=== PATIENT | female | born 1990 | race Caucasian/White ===

== ENCOUNTER 2019-04-06 19:35 | Emergency (ER) | payer OTHER, SELFPAY ==
--- NOTE | ~2019-04-06 | XR_ITS ---
EXAMINATION: XR chest 2V DATE: 04/06/2019 20:27 INDICATION: Chest heaviness and palpitations TECHNIQUE: PA and lateral views of the chest are obtained. COMPARISON: None available FINDINGS: The lungs are free of acute opacities. There is no pleural effusion or pneumothorax. The ca rdiomediastinal silhouette is normal. The visualized bones and soft tissues are unremarkable. IMPRESSION: 1. No acute cardiopulmonary abnormality. Reviewed, dictated and finalized at location A. CULTURE TEACHER
[2019-04-06 19:37] VITALS: BP 147/85; PULSE 93; RESP 18; TEMP 36.9; O2SAT 100
--- NOTE | 2019-04-06 19:48 | ECG_ITS ---
Measurements Intervals [place] Rate: 78 P: 45 MD: 120 QRS: 15 QRSD: 104 T: 35 QT: 378 QTc: 432 Interpretive Statements SINUS RHYTHM WITH SINUS ARRHYTHMIA INCOMPLETE RIGHT BUNDLE BRANCH BLOCK BORDERLINE ECG Electronically Signed On 04-07-2019 8:19:31 [employer] by Lebron Ash D.O.
[2019-04-06 19:49] VITALS: PULSE 78
--- NOTE | 2019-04-06 19:52 | ED.ARRPALP ---
HPI - Arrhythmia/Palpitations General Chief Complaint: Arrhythmia/Palpitations Stated Complaint: heart racing Time Seen by Provider: 04/06/19 19:41 Source: patient and RN notes reviewed Mode of arrival: ambulatory Limitations: no limitations History of Present Illness HPI narrative: A 28 y/o female presents to the ED with intermittent, worsening, heart palpitations for the past week. She states that she first noticed last weekend but that roughly 45 minutes ago it became more severe. She reports that it feels like her heart is pounding and skipping beats. She notes associated rhinorrhea, nausea, and chest discomfort. She also notes that the palpitations typically start while she is at rest. She denies anything aggravating or alleviating her symptoms. She also denies any sharp CP, leg edema, vomiting, diarrhea, sweats, cough, sore throat, body aches, fevers, chills, or ABD pain. complaint: skipped beats and palpitations Onset (ago): week(s) (1) Duration: intermittent (worsening) Context: occurred during rest Associated symptoms: nausea and other (rhinorrhea and chest discomfort) Related Data Home Medications Medication Instructions Recorded Confirmed No Home Medications 04/06/19 04/06/19 Allergies Allergy/AdvReac Type Severity Reaction Status Date / Time No Known Allergies Allergy Unverified 04/06/19 19:36 Review of Systems Review of Systems: All systems reviewed & are unremarkable except as noted in HPI and below Constitutional: Constitutional: Denies body ache(s), Denies chills, Denies fever(s) and Denies other (sweats) ENT: Reports nasal discharge and Denies sore throat Cardiovascular: Cardiovascular: Denies chest pain (sharp), Denies leg edema, Reports palpitations and Reports other (chest discomfort) Respiratory: Respiratory: Denies cough Gastrointestinal: Gastrointestinal: Denies abdominal pain, Denies diarrhea, Reports nausea and Denies vomiting PMFSH Past Medical History Medical History (Updated 04/06/19 @ 22:19 by Humberto Berg MD) Finger fracture No pertinent past medical history Surgical History Surgical History (Updated 04/06/19 @ 22:14 by Humberto Berg MD) No pertinent past surgical history Surgical history unknown Family History Family History (Updated 04/06/19 @ 22:14 by Humberto Berg MD) Father Hypertension Grandparent Family history of arthritis Family history of Alzheimer's disease Mother SVT (supraventricular tachycardia) Social History Social History Smoking status: Never smoker Alcohol intake: current Gender identity (if verbalized by the patient): Female Exam Narrative: Exam Narrative: GENERAL: Well-appearing, well-nourished, and in no acute distress. HEAD: Normocephalic, atraumatic. ENT: Mucous membranes moist. CHEST: Clear to auscultation. No respiratory distress. HEART: Tachycardic and regular. No murmur heard. Normal peripheral pulses. ABDOMEN: Soft, nontender, nondistended. EXTREMITIES: Normal range of motion. No edema. NEURO: Alert and oriented x3. Course Course Emergency Course: Patient informed of results. Will add on TSH. She will arrange outpatient follow-up with PCP. May require outpatient holter. Vital Signs Vital signs: Vital Signs Temperature 98.4 F 04/06/19 19:37 Pulse Rate 93 04/06/19 19:37 Respiratory Rate 18 04/06/19 19:37 Blood Pressure 147/85 H 04/06/19 19:37 Pulse Oximetry 100 04/06/19 19:37 Temperature 98.4 F 04/06/19 19:37 Pulse Rate 78 04/06/19 19:49 Respiratory Rate 18 04/06/19 19:37 Blood Pressure 147/85 H 04/06/19 19:37 Pulse Oximetry 100 04/06/19 19:37 MDM - Arrhythmia/Palpitations Lab Data Result diagrams: 04/06/19 20:04 04/06/19 20:04 Labs: Lab Results 04/06/19 04/06/19 04/06/19 Range/Units 20:04 20:04 20:04 WBC 6.3 (4.5-10.0) K/mm3 RBC 4.68 (4.2-5.4) M/mm3 Hgb
[2019-04-06 20:09] LABS: Basophils Absolute Auto 0.1 K/mm3 (0.0-0.1); Basophils Percent Auto 1.1 % (0.2-1.2); Eosinophils Absolute Auto 0.1 K/mm3 (0-0.3); Hematocrit 39.6 % (37.0-47.0); Hemoglobin 12.8 g/dL (12.0-15.0); Immature Granulocyte Absolute 0.01 K/mm3 (0.00-0.031); Immature Granulocyte Percent A 0.2 % (0-0.5); Lymphocytes Absolute Auto 3.51 K/mm3 (0.9-3.2); Lymphocytes Percent Auto 55.6 % (18.3-44.2); Mean Corpuscular HGB Conc 32.3 g/dl (32-36); Mean Corpuscular Hemoglobin 27.4 pg (26-34); Mean Corpuscular Volume 84.6 fl (80-100); Mean Platelet Volume 10.2 fl (7.4-10.4); Monocytes Absolute Auto 0.5 K/mm3 (0.1-0.6); Monocytes Percent Auto 7.1 % (2.6-8.5); Neutrophils Absolute Auto 2.2 K/mm3 (1.3-6.7); Platelet Count Result 344 k/mm3 (150-375); Red Blood Count 4.68 M/mm3 (4.2-5.4); Red Cell Distribution Width 15.5 % (11.5-14.5); White Blood Count 6.3 K/mm3 (4.5-10.0)
[2019-04-06 20:19] LABS: INR 1.2; Prothrombin Time 14.5 Seconds (11.1-14.7)
[2019-04-06 20:20] LABS: Partial Thromboplastin Time 32.2 SECONDS (22.3-36.8)
[2019-04-06 20:21] LABS: Blood Urea Nitrogen 12 mg/dL (7-17); Calcium 9.4 mg/dL (8.4-10.2); Carbon Dioxide 28 mmol/L (22-30); Chloride 102 mmol/L (98-107); Estimated Glomerular Filt Rate > 60; Glucose 102 mg/dL (65-105); Potassium 3.4 mmol/L (3.4-5.0); Sodium 140 mmol/L (137-145)
--- NOTE | 2019-04-06 20:24 | PC.NURSE ---
called to add on bnp
[2019-04-06 20:33] LABS: Troponin I < 0.012 ng/mL (0.000-0.034)
[2019-04-06] MEDS: SODIUM CHLORIDE 0.9% IV 1,000 ML 999 ML IV CONT (21:55)
[2019-04-06] MEDS: ASPIRIN 81 MG CHEWABLE TABLET 324 MG PO (21:55)
[2019-04-06 22:39] VITALS: BP 116/74; PULSE 75; RESP 14; O2SAT 97
[2019-04-06 23:04] LABS: Free T4 Free Thyroxine Reflex 0.85 ng/dL (0.78-2.19)
[2019-04-06 23:43] LABS: Total Triiodothyronine (T3) 1.51 NG/ML (0.97-1.69)
== END 2019-04-06 22:41 | disposition home or self-care (01) ==
PROVIDERS: Emergency Provider Emergency Medicine
DX: R00.2 Palpitations (principal); I45.10 Unspecified right bundle-branch block
CPT/HCPCS: 36415; 71046; 80048; 81025; 83735; 84439; 84443; 84480; 84484; 85025; 85610; 85730; 93005; 96360; 99284; A9270; J7030

== ENCOUNTER 2020-01-16 17:27 | Outpatient (CLI) | payer OTHER, SELFPAY | END 2020-01-16 17:28 | disposition home or self-care (01) | LOC: ANHLAB 17:29 | PROVIDERS: Visit Provider Surgery Plastic and Reconstructive Surgery | DX: Z20.828 Contact with and (suspected) exposure to other viral communicable diseases (principal) | CPT/HCPCS: 36415; 86769 ==

== ENCOUNTER 2020-03-11 16:06 | Inpatient (IN) | payer OTHER, SELFPAY ==
[2020-03-11] VITALS (80 sets, daily range): BP systolic 90–125; BP diastolic 49–89; PULSE 69–110; TEMP 36.8–37; O2SAT 96–100; BMI 27.3
[2020-03-11 17:06] LABS: Basophils Absolute Auto 0.1 K/mm3 (0.0-0.1); Basophils Percent Auto 0.6 % (0.2-1.2); Eosinophils Percent Auto 0.3 % (0-4.4); Hematocrit 37.1 % (37.0-47.0); Hemoglobin 12.5 g/dL (12.0-15.0); Immature Granulocyte Absolute 0.07 K/mm3 (0.00-0.031); Immature Granulocyte Percent A 0.6 % (0-0.5); Lymphocytes Absolute Auto 2.27 K/mm3 (0.9-3.2); Lymphocytes Percent Auto 19.8 % (18.3-44.2); Mean Corpuscular HGB Conc 33.7 g/dl (32-36); Mean Corpuscular Hemoglobin 30.6 pg (26-34); Mean Corpuscular Volume 90.7 fl (80-100); Mean Platelet Volume 11.4 fl (7.4-10.4); Monocytes Absolute Auto 0.7 K/mm3 (0.1-0.6); Monocytes Percent Auto 6.5 % (2.6-8.5); Neutrophils Absolute Auto 8.3 K/mm3 (1.3-6.7); Neutrophils Percent Auto 72.2 % (45.5-73.1); Platelet Count Result 239 k/mm3 (150-375); Red Blood Count 4.09 M/mm3 (4.2-5.4); White Blood Count 11.5 K/mm3 (4.5-10.0)
--- NOTE | 2020-03-11 17:07 | LDADM ---
This patient, Lois Alba, was admitted to Labor/Delivery/Recovery 108 on 03/11/20 at 16:06. Plans for labor, pain management and were discussed with patient. Patient/family oriented to hospital policies and general routines including ID bracelet, bed and alarms, visiting hours, pain management, procedures, bathroom and other care routines, personal items, smoking policy, room service/diet and guest tray routines, infant security routines, and visiting hours. Patient/Family are encouraged to report perceived risks to care and to ask questions if they do not understand what they are told or what they should do. See OBIX for further documentation.
[2020-03-11] MEDS: DINOPROSTONE 10 MG VAG INSERT VAGINAL (17:23)
--- NOTE | 2020-03-11 18:00 | WPDOBADMIT ---
Obstetrics - Admit Note Admission Note: record reviewed. Additions to the history and/or subsequent changes in the physical findings follow. 29 y/o G1 at 40 1/7 weeks here for induction of labor. GBS negative. uncomplicated. AVSS NST reactive TOCO: contractions irregularly ABD soft, nontender, gravid, vertex EXT nontender Cervix 50/-2 per RN. A: IUP at term, desiring induction of labor. P: Cervidil. Reviewed risks, benefits, alternatives. Anticipate .
[2020-03-11] MEDS: LACTATED RINGERS 1,000 ML 125 ML IV CONT ×3 (20:01→21:36)
--- NOTE | 2020-03-11 20:50 | WPDANESEPP ---
Anes - Eval Pre Procedure Procedure: Labor epidural Date/Time: 03/11/20 20:50 Surgeon: Mariola Preop Diagnosis: pain during labor Pre Op Diagnosis: PRE ADMIT Patient Data Age: 29 Gender: F Height: 1.57 m Weight: 68 kg Last Vital Signs Temp 36.8 C 03/11/20 19:16 Pulse 99 03/11/20 20:45 BP 114/79 03/11/20 20:45 Allergies Allergy/AdvReac Type Severity Reaction Status Date / Time No Known Allergies Allergy Verified 02/08/20 13:41 Home Medications Medication Instructions Recorded Confirmed Type prenat.vits,jasbir,hri-nque-cddsc 1 tablet PO DAILY 02/08/20 02/08/20 History [ #2] Laboratory Tests 03/11/20 03/11/20 03/11/20 16:58 16:58 16:58 WBC 11.5 K/mm3 H K/mm3 (4.5-10.0) RBC 4.09 M/mm3 L M/mm3 (4.2-5.4) Hgb 12.5 g/dL g/dL (12.0-15.0) Hct 37.1 % % (37.0-47.0) MCV 90.7 fl fl (80-100) MCH 30.6 pg pg (26-34) MCHC 33.7 g/dl g/dl (32-36) RDW 14.0 % % (11.5-14.5) Plt Count 239 k/mm3 k/mm3 (150-375) MPV 11.4 fl H fl (7.4-10.4) Immature Gran % (Auto) 0.6 % H % (0-0.5) Neut % (Auto) 72.2 % % (45.5-73.1) Lymph % (Auto) 19.8 % % (18.3-44.2) [place] % (Auto) 6.5 % % (2.6-8.5) Eos % (Auto) 0.3 % % (0-4.4) Baso % (Auto) 0.6 % % (0.2-1.2) Lymph # (Auto) 2.27 K/mm3 K/mm3 (0.9-3.2) [place] # (Auto) 0.7 K/mm3 H K/mm3 (0.1-0.6) Eos # (Auto) 0.0 K/mm3 K/mm3 (0-0.3) Baso # (Auto) 0.1 K/mm3 K/mm3 (0.0-0.1) Abs Immat Gran (auto) 0.07 K/mm3 H K/mm3 (0.00-0.031) Absolute Neuts (auto) 8.3 K/mm3 H K/mm3 (1.3-6.7) Absolute Nucleated RBC 0.0 K/mm3 K/mm3 (0.0-0.012) Nucleated RBC % 0.0 % % (0.0-0.2) RPR Pending Blood Type A Positive Antibody Screen Negative Patient hx anesthesia problems: pseudocholinesterase deficiency Family hx anesthesia problems: none PMFSH Past Medical History Medical History (Updated 01/16/20 @ 17:27 by Kulwinder Alba MD) Finger fracture No pertinent past medical history Surgical History Surgical History (Updated 04/06/19 @ 22:14 by Humberto Berg MD) No pertinent past surgical history Surgical history unknown Family History Family History Father Hypertension Grandparent Family history of arthritis Family history of Alzheimer's disease Mother SVT (supraventricular tachycardia) Social History Social History Smoking status: Never smoker Alcohol intake: current Substance use: never Gender identity (if verbalized by the patient): Female Spiritual care concerns: No Exam Day of Procedure 03/11/20 20:50
[2020-03-11] MEDS: OXYTOCIN 30 UNITS/NS 500 ML 30 UNITS/500 ML BAG 6 UNITS IV CONT (21:55)
[2020-03-12] VITALS (96 sets, daily range): BP systolic 94–125; BP diastolic 56–82; PULSE 67–167; RESP 16–18; TEMP 36.7–37.3; O2SAT 96–100
[2020-03-12] MEDS: OXYTOCIN 30 UNITS/NS 500 ML 30 UNITS/500 ML BAG 125 UNITS IV CONT (05:32)
--- NOTE | 2020-03-12 05:32 | PM.OBPRVD ---
OB - Delivery Note Procedure Delivery date: 03/12/20 Procedure: Induction of labor with Induction method: per pitocin protocol and per cervidil protocol Delivery augmentation: pitocin Delivery monitor: external FHT and external uterine Route of delivery: Laceration Description: Perineal - 2nd Degree and Labial Delivery repair: vicryl (3-0 and 4-0) Specimen: Yes (cord blood) Quantitative Blood Loss (ml): 320 Anesthesia type: Epidural Disposition: PACU Complications: None Narrative: 29 y/o G1 at 40 2/7 weeks gestation who presented to the hospital for induction of labor. Cervidil was placed. She had SROM and the Cervidil was withdrawn. She received an epidural for pain control. Oxytocin was administered intravenously. Her labor progressed and her cervix dilated completely. She pushed with good effort and delivered the 's head to the perineum, followed by the body. The nose and mouth were bulb suctioned. After a delay, the cord was clamped and cut. The infant was handed off the field. Cord blood was collected. The placenta delivered spontaneously and was grossly normal in appearance. The usual 3 vessel cord was noted. Bilateral vaginal sulcal lacerations were noted, as was a second degree midline perineal laceration. These were reapproximated using 3 0 Vicryl in the usual layered fashion. A shallow, left labial laceration was reapproximated using two interrupted sutures of 4-0 Vicryl. Excellent hemostasis resulted as did excellent reapproximation of the normal anatomy. Needle and instrument counts were correct. The patient was taken to recovery room in stable condition. The infant went to the nursery in stable condition. I was present and scrubbed for the entire delivery. [place] Baby Date of : 03/12/20 Time of : 04:56 Weeks of gestation at delivery: 40 gender: Male Weight (pounds): 7 presentation: vertex position: Right Occiput Anterior Placenta delivery description: Spontaneous and Normal Configuration cord vessel description: 3 Vessels and Delayed Cord Clamping score one minute: 9 score five minutes: 9
--- NOTE | 2020-03-12 05:35 | P.DS_ITS ---
DS: Admitting Diagnosis Admitting Diagnosis Admitting Diagnosis: IUP at 40 2/7 weeks DS: Discharge Diagnosis Discharge Diagnosis (1) (normal spontaneous vaginal delivery): Code(s): O80 - Encounter for full-term uncomplicated delivery Status: Acute OB - DS: Summary OB Procedures : None OB Procedures Intrapartum: Spontaneous Vag Delivery OB Procedures: : None DS: Data Data Completed and Pending Labs on day of discharge: Labs from last 24 hours 03/11/20 03/11/20 03/11/20 16:58 16:58 16:58 WBC 11.5 H RBC 4.09 L Hgb 12.5 Hct 37.1 MCV 90.7 MCH 30.6 MCHC 33.7 RDW 14.0 Plt Count 239 MPV 11.4 H Immature Gran % (Auto) 0.6 H Neut % (Auto) 72.2 Lymph % (Auto) 19.8 [place] % (Auto) 6.5 Eos % (Auto) 0.3 Baso % (Auto) 0.6 Lymph # (Auto) 2.27 [place] # (Auto) 0.7 H Eos # (Auto) 0.0 Baso # (Auto) 0.1 Abs Immat Gran (auto) 0.07 H Absolute Neuts (auto) 8.3 H Absolute Nucleated RBC 0.0 Nucleated RBC % 0.0 RPR Pending Blood Type A Positive Antibody Screen Negative Discharge Plan Discharge Attending physician on discharge: Steven Garnett Discharging Clinician: Steven Garnett Patient Disposition: Home, Self-Care Activity: pelvic rest Diet: regular Discharge Instructions: Call or return if temperature above 100.4? F, increased abdominal pain, increased vaginal bleeding or any new problems. Stand Alone Forms: General Discharge Information Follow-up/Referrals: Steven Garnett MD [Physician] - 6 Weeks Discharge Medications: New ibuprofen 600 mg tablet 600 mg PO Q6H PRN (Reason: cramps) Qty: 30 RF: 0 ferrous sulfate 325 mg (65 mg iron) tablet 325 mg PO DAILY Qty: 30 RF: 0 No Action #2 Tablet 1 tablet PO DAILY RF: 0 Date of admission: 03/11/20 16:06 Primary Care Provider: PHYSICIAN,PATIENT SCHEDULING MANAGER Admitting Provider: Steven Garnett Attending physician on admission: Steven Garnett Condition: Stable
[2020-03-12] MEDS: IBUPROFEN 600 MG TABLET PO ×3 (06:30→21:01)
[2020-03-12] MEDS: BENZOCAINE 20% AER SPR (*SP) 56 GM CAN 1 SPRAY TOPICAL (06:30)
[2020-03-12] MEDS: WITCH HAZEL 40 PADS 1 PAD TOPICAL (06:30)
--- NOTE | 2020-03-12 08:25 | PC.NURSE ---
Patient transferred to post room #288 per wheelchair from labor and delivery. Support person present. Oriented to unit, room, information board, rooming in, admission packet and security measures. Patient verbalizes understanding.
[2020-03-12 11:06] LABS: Rapid Plasma Reagin Non-Reactive (NonReactive)
[2020-03-13 05:11] LABS: Hematocrit 27.9 % (37.0-47.0); Hemoglobin 9.4 g/dL (12.0-15.0)
[2020-03-13 07:50] VITALS: BP 110/70; PULSE 89; RESP 16; TEMP 36.6; O2SAT 100
--- NOTE | 2020-03-13 08:36 | PM.OBPNVD ---
OB - PN: Subj Subjective Date/time seen: 03/13/20 08:36 Narrative: Pain OK. Would like to go home. OB - PN: Obj Data Labs CBC & Chem 7: 03/13/20 04:51 Labs: Laboratory Results - last 24 hr 03/11/20 03/13/20 16:58 04:51 Hgb 9.4 L D Hct 27.9 L RPR Non-reactive OB - PN A/P Plan Comments: A: PPD#1, doing well. P: Home to f/u 6 weeks. Exam Psych: Other: AVSS ABD soft, nontender, fundus firm EXT nontender
[2020-03-13] MEDS: MULTIVIT/MIN/PREN/FOL AC/IRON TABLET 1 TAB PO (09:17)
[2020-03-13] MEDS: IBUPROFEN 600 MG TABLET PO (09:18)
[2020-03-13] MEDS: POLYSACCHARIDE IRON COMPLEX 150 MG CAPSULE PO (09:18)
--- NOTE | 2020-03-13 10:40 | WPDANESPN ---
Anes - Prog Note Post-Op Date/Time: 03/13/20 10:40 Cardiovascular status: normal Respiratory status: normal Airway patency: baseline Mental status: baseline Post-Op hydration status: normal Vital Signs: Last Vital Signs Temp 97.9 F 03/13/20 07:50 Pulse 89 03/13/20 07:50 Resp 16 03/13/20 07:50 BP 110/70 03/13/20 07:50 Pulse Ox 100 03/13/20 07:50 Pain Score (VAS): 0/10 I/O: Intake & Output 03/12/20 03/13/20 03/13/20 23:59 07:59 15:59 Intake Total 360 Balance 360 Laboratory Tests 03/13/20 04:51 03/11/20 03/13/20 16:58 04:51 Hgb 9.4 L D Hct 27.9 L RPR Non-reactive Post-procedural complaints: none Patient Feedback: Patient satisfied with anesthetic care.
--- NOTE | 2020-03-13 10:57 | WPDANLDPN2 ---
Anes-Prog Note L&D Date/Time: 03/13/20 10:57 Comfortable throughout: labor and delivery Neuraxial method: epidural Neuro status: Neuro function grossly intact. Cardiovascular status: normal Respiratory status: normal Airway patency: baseline Mental status: baseline Post-Op hydration status: normal Vital Signs: Last Vital Signs Temp 97.9 F 03/13/20 07:50 Pulse 89 03/13/20 07:50 Resp 16 03/13/20 07:50 BP 110/70 03/13/20 07:50 Pulse Ox 100 03/13/20 07:50 Pain score (VAS): 0/10 I/O: Intake & Output 03/12/20 03/13/20 03/13/20 23:59 07:59 15:59 Intake Total 360 Balance 360 Post-procedural complaints: none Patient feedback: Patient satisfied with anesthetic care.
--- NOTE | 2020-03-13 12:16 | PC.NURSE ---
Patient viewed the discharge video Mother & Baby Care, The First Two Weeks . Patient was given the opportunity and encouraged to ask questions. Patient verbalized understanding of information shared and has been given the mother/baby guide for home reference.
--- NOTE | 2020-03-13 12:36 | PC.NURSE ---
Consulted with patient, reviewed feeding cues, frequencies, duration of feedings, feeding elimination flow sheet, and signs of adequate intake. Demonstrated stimulation techniques to wake for feeding. to breast independently by mom with use of nipple shield. Reviewed positioning/alignment, holding breast and asymmetrical latch on. was able to latch correctly. Infant nursed eagerly, with steady draws and occasional swallowing noted. Reviewed signs of a correct latch, effective nursing and suck swallow ratio. Infant was able to maintain latch without discomfort to mother. Nipple care reviewed. Instructed mother to call out for RN assistance if she is unable to latch for feeding or she has discomfort with nursing. Instructed feeding should be initiated three hours from start of last feeding or if feeding cues are noted before. Mother voiced understanding of information shared.
--- NOTE | 2020-03-13 12:38 | PC.NURSE ---
Mother verbalizes she is able to independently latch with appropriate positioning/alignment. She denies any nipple discomfort, is feeding as required and waking to feed if needed. Infant has had 5 effective breastfeedings in the past 24 hours along with some formula supplementation, and is currently meeting outcomes for weight, output, jaundice and feeding frequencies. Mother states she feels confident to continue effective at home. Reviewed transition to breast milk, signs of adequate intake, and engorgement/relief. Instructed to call ICP if intake/output less than required. Reviewed community resources on the [facility] website and in the Mom/Baby guide. Information on outpatient services provided. Mother has no further questions at this time.
[2020-03-14 11:16] VITALS: BP 105/81; PULSE 80; RESP 20; TEMP 36.6; O2SAT 100
== END 2020-03-13 14:45 | disposition home or self-care (01) | DRG 807 ==
LOC: ANHLDR 03-12 05:37 → ANHOB2 03-12 08:33
PROVIDERS: Admitting Provider Obstetrics & Gynecology; Visit Provider Obstetrics & Gynecology
DX: O69.81X0 Labor and delivery complicated by cord around neck, without compression, not applicable or unspecified (principal); Z37.0 Single live birth; Z3A.40 40 weeks gestation of pregnancy; O70.1 Second degree perineal laceration during delivery; O36.8330 Maternal care for abnormalities of the fetal heart rate or rhythm, third trimester, not applicable or unspecified
CPT/HCPCS: 36415; 84112; 85014; 85018; 85025; 86592; 86850; 86900; 86901; A9270; J2590; J2795; J7120

== ENCOUNTER → 2021-02-03 11:33 | Outpatient (REF) | payer OTHER, SELFPAY | LOC: ANHLAB 11:33 | PROVIDERS: Visit Provider Nurse Practitioner | DX: D22.5 Melanocytic nevi of trunk (principal) | CPT/HCPCS: 88305 ==

== ENCOUNTER → 2022-06-07 17:07 | Outpatient (CLI) | payer OTHER, SELFPAY ==
--- NOTE | ~2022-06-07 | XR_ITS ---
EXAMINATION: XR chest 2V 06/07/2022 17:30 INDICATION: Cough PROCEDURE: 2 view chest COMPARISON: 04/06/2019 FINDINGS: The lungs are clear. The cardiomediastinal silhouette is within normal limits. There are no pleural effusions. There is no pneumothorax suspected. IMPRESSION: 1: NO ACUTE CARDIOPULMONARY DISEASE. Reviewed, dictated and finalized at location A.
== END ==
PROVIDERS: PCP Internal Medicine; Visit Provider Internal Medicine
DX: R05.9 Cough, unspecified (principal)
CPT/HCPCS: 71046

== ENCOUNTER 2022-09-30 15:22 | Outpatient (CLI) | payer OTHER, SELFPAY ==
[2022-09-30 19:51] LABS: Strep Group A RT-PCR NOT DETECTED (Negative)
== END 2022-09-30 15:23 | disposition home or self-care (01) ==
LOC: ANHLAB 15:24
PROVIDERS: PCP Internal Medicine; Visit Provider Internal Medicine
DX: J02.9 Acute pharyngitis, unspecified (principal)
CPT/HCPCS: 87651

== ENCOUNTER 2023-05-18 06:08 | Inpatient (IN) | payer OTHER, SELFPAY ==
[2023-05-18] VITALS (138 sets, daily range): BP systolic 89–135; BP diastolic 51–98; PULSE 73–151; RESP 16; TEMP 36.1–36.9; O2SAT 81–100; BMI 25.6
[2023-05-18 07:02] LABS: Basophils Absolute Auto 0.1 K/mm3 (0.0-0.1); Basophils Percent Auto 0.5 % (0.2-1.2); Eosinophils Percent Auto 0.4 % (0-4.4); Hematocrit 35.9 % (37.0-47.0); Hemoglobin 12.2 g/dL (12.0-15.0); Immature Granulocyte Absolute 0.06 K/mm3 (0.00-0.031); Immature Granulocyte Percent A 0.7 % (0-0.5); Lymphocytes Absolute Auto 1.56 K/mm3 (0.9-3.2); Mean Corpuscular Hemoglobin 30.7 pg (26-34); Mean Corpuscular Volume 90.2 fl (80-100); Mean Platelet Volume 10.3 fl (7.4-10.4); Monocytes Absolute Auto 0.6 K/mm3 (0.1-0.6); Monocytes Percent Auto 6.5 % (2.6-8.5); Neutrophils Absolute Auto 6.9 K/mm3 (1.3-6.7); Neutrophils Percent Auto 74.9 % (45.5-73.1); Platelet Count Result 239 k/mm3 (150-375); Red Blood Count 3.98 M/mm3 (4.2-5.4); White Blood Count 9.2 K/mm3 (4.5-10.0)
--- NOTE | 2023-05-18 07:12 | LDADM ---
This patient, Lois Alba, was admitted to Labor/Delivery/Recovery 102 on 05/18/23 at 06:08. Plans for labor, pain management and were discussed with patient. Patient/family oriented to hospital policies and general routines including ID bracelet, bed and alarms, visiting hours, pain management, procedures, bathroom and other care routines, personal items, smoking policy, room service/diet and guest tray routines, infant security routines, and visiting hours. Patient/Family are encouraged to report perceived risks to care and to ask questions if they do not understand what they are told or what they should do. See OBIX for further documentation.
[2023-05-18] MEDS: LACTATED RINGERS 1,000 ML 125 ML IV CONT ×3 (07:45→15:45)
[2023-05-18] MEDS: OXYTOCIN 30 UNITS/NS 500 ML 30 UNITS/500 ML BAG IV CONT ×2 (07:50→15:46)
--- NOTE | 2023-05-18 08:42 | WPDOBADMIT ---
Obstetrics - Admit Note Admission Note: record reviewed. Additions to the history and/or subsequent changes in the physical findings follow. 32 y/o at 39 1/7 weeks here for scheduled induction of labor. GBS neg. AVSS NST reactive TOCO: contractions every 2-4 min ABD soft, nontender, gravid, vertex EXT nontender Cervix 2-3/50/-2. Vertex. AROM with clear fluid. A: IUP at term with favorable cervix, desiring induction of labor. P: Oxytocin. Anticipate .
--- NOTE | 2023-05-18 10:44 | WPDANESEPP ---
Anes - Eval Pre Procedure Procedure: Labor Epidural Date/Time: 05/18/23 10:44 Surgeon: Mariola Preop Diagnosis: Labor Pain Pre Op Diagnosis: IOL Patient Data Age: 32 Gender: F Height: 1.57 m Weight: 63.5 kg Last Vital Signs Temp 36.9 C 05/18/23 06:30 Pulse 90 05/18/23 10:40 BP 114/67 05/18/23 10:40 Pulse Ox 100 05/18/23 10:43 O2 Del Method Room Air 05/18/23 07:12 Allergies Allergy/AdvReac Type Severity Reaction Status Date / Time No Known Allergies Allergy Verified 05/18/23 07:27 Home Medications Medication Instructions Recorded Confirmed Type cetirizine 10 mg tablet (Zyrtec) 10 mg PO DAILY PRN sinus pressure 07/01/21 05/18/23 History lansoprazole 15 mg capsule,delayed 15 mg PO DAILY 07/01/21 05/18/23 History release ferrous sulfate 325 mg (65 mg 325 mg PO DAILY 04/28/23 04/28/23 History iron) tablet prenat.vits,jasbir,ott-ehyt-jkdyb 1 tablet PO DAILY 04/28/23 05/18/23 History Laboratory Tests 05/18/23 06:52 WBC 9.2 K/mm3 (4.5-10.0) RBC 3.98 L M/mm3 (4.2-5.4) Hgb 12.2 g/dL (12.0-15.0) Hct 35.9 L % (37.0-47.0) MCV 90.2 fl (80-100) MCH 30.7 pg (26-34) MCHC 34.0 g/dl (32-36) RDW 15.0 H % (11.5-14.5) Plt Count 239 k/mm3 (150-375) MPV 10.3 fl (7.4-10.4) Immature Gran % (Auto) 0.7 H % (0-0.5) Neut % (Auto) 74.9 H % (45.5-73.1) Lymph % (Auto) 17.0 L % (18.3-44.2) [place] % (Auto) 6.5 % (2.6-8.5) Eos % (Auto) 0.4 % (0-4.4) Baso % (Auto) 0.5 % (0.2-1.2) Lymph # (Auto) 1.56 K/mm3 (0.9-3.2) [place] # (Auto) 0.6 K/mm3 (0.1-0.6) Eos # (Auto) 0.0 K/mm3 (0-0.3) Baso # (Auto) 0.1 K/mm3 (0.0-0.1) Abs Immat Gran (auto) 0.06 H K/mm3 (0.00-0.031) Absolute Neuts (auto) 6.9 H K/mm3 (1.3-6.7) Absolute Nucleated RBC 0.000 K/mm3 (0.0-0.012) Nucleated RBC % 0.0 % (0.0-0.2) RPR Pending Blood Type A Positive Antibody Screen Negative : gestational age ([place] 05/24/23, ) Patient hx anesthesia problems: none Family hx anesthesia problems: none Results Review: All pre-operative results and documents have been reviewed as part of the pre-operative evaluation. [facility] Past Medical History Medical History BMI 20.0-20.9, adult Encounter to establish care Finger fracture Frequent headaches GERD (gastroesophageal reflux disease) Incomplete RBBB No pertinent past medical history On edger machine helper drug therapy Pseudocholinesterase deficiency Surgical History Surgical History No pertinent past surgical history Family History Family History Father Hypertension Malignant neoplasm of prostate Grandparent Family history of arthritis Family history of Alzheimer's disease Mother SVT (supraventricular tachycardia) Social History Social History Smoking status: Never smoker Second hand tobacco smoke exposure: No Alcohol intake: current Substance use: never Do You Feel Safe in your Home?: Yes Lack of Transportation: No Lack of Food: Never True Current Housing: I Have Housing Concerned About Future Housing: No Difficulty Paying Gas/Electric Bills: No Difficulty Paying for Meds: No Currently Unemployed: No Education: Bachelor's Degree Difficulty w/ Childcare or Family Care: No Living arrangements: with family Occupation/Education: occupation Gender identity (if verbalized by the patient): Female Spiritual care concerns: No Exam Day of Procedure 05/18/23 10:44 Patient weight: normal Heart: regular rate and rhythm Lungs: normal air movement Airway: Mallampati scale class II Neurological: alert and oriented
--- NOTE | 2023-05-18 12:21 | PM.OBPNLAB ---
Pain Control Date/time seen: 05/18/23 12:21 Comments: Comfortable with epidural Pelvic Exam Dilation (cm): 4 Effacement (%): 80 station: -1 Contractions Contraction frequency: 3 Contraction pattern: Regular Status status: Category l Assessment and Plan Pitocin rate (mU/min): 6 Comments: Continue labor
[2023-05-18 14:27] LABS: Rapid Plasma Reagin Non-Reactive (NonReactive)
--- NOTE | 2023-05-18 15:32 | P.PCNOB_ITS ---
OB - Vaginal Delivery Note Procedure Delivery date: 05/18/23 Induction method: Per Pitocin Protocol Delivery augmentation: Rupture of Membranes Delivery monitor: External FHT, External Uterine and Internal Uterine Route of delivery: Laceration Description: Perineal - 2nd Degree Delivery repair: vicryl (3-0) Specimen: Yes (cord blood) Quantitative Blood Loss (ml): 320 Anesthesia type: Epidural Disposition: PACU Complications: None Narrative: 32 y/o at 39 1/7 weeks gestation who presented to the hospital for induction of labor. Oxytocin was administered intravenously. Amniotomy was performed with return of clear fluid. She received an epidural for pain control. Her labor progressed and her cervix dilated completely. She pushed with good effort and delivered the infant's head to the perineum, followed by the body. The nose and mouth were bulb suctioned. After a delay, the cord was clamped and cut. The infant was handed off the field. Cord blood was collected. The placenta delivered spontaneously and was grossly normal in appearance. The usual 3 vessel cord was noted. A second degree midline perineal laceration was sustained. This was reapproximated using 3 0 Vicryl in the usual layered fashion. Excellent hemostasis resulted as did excellent reapproximation of the normal anatomy. Needle and instrument counts were correct. The patient was taken to recovery room in stable condition. The infant went to the nursery in stable condition. I was present and scrubbed for the entire delivery. [place] Baby Date of : 05/18/23 Time of : 15:12 Weeks of gestation at delivery: 39 Infant gender: Female presentation: vertex position: Left Occiput Anterior Placenta delivery description: Spontaneous and Normal Configuration Cord Vessel Description: 3 Vessels and Delayed Cord Clamping score one minute: 8 score five minutes: 9
--- NOTE | 2023-05-18 15:33 | PM.OBDSVD ---
DS: Admitting Diagnosis Discharge Date 05/19/23 Admitting Diagnosis IUP at 39 1/7 weeks DS: Discharge Diagnosis Discharge Diagnosis (1) (normal spontaneous vaginal delivery): Code(s): O80 - Encounter for full-term uncomplicated delivery Status: Acute OB - DS: Summary OB Procedures : None OB Procedures Intrapartum: Spontaneous Vag Delivery OB Procedures: : None Peripartum Data Laceration Description: Perineal - 2nd Degree Time Spent with Patient Time attestation: Total time spent providing and/or coordinating discharge services: DS: Data Data Completed and Pending Labs on day of discharge: Labs from last 24 hours 05/18/23 06:52 WBC 9.2 RBC 3.98 L Hgb 12.2 Hct 35.9 L MCV 90.2 MCH 30.7 MCHC 34.0 RDW 15.0 H Plt Count 239 MPV 10.3 Immature Gran % (Auto) 0.7 H Neut % (Auto) 74.9 H Lymph % (Auto) 17.0 L [place] % (Auto) 6.5 Eos % (Auto) 0.4 Baso % (Auto) 0.5 Lymph # (Auto) 1.56 [place] # (Auto) 0.6 Eos # (Auto) 0.0 Baso # (Auto) 0.1 Abs Immat Gran (auto) 0.06 H Absolute Neuts (auto) 6.9 H Absolute Nucleated RBC 0.000 Nucleated RBC % 0.0 RPR Non-reactive Blood Type A Positive Antibody Screen Negative Discharge Plan Discharge Attending physician on discharge: Steven Garnett Discharging Clinician: Steven Garnett Patient Disposition: Home, Self-Care Activity: pelvic rest Diet: regular Discharge Instructions: Call or return if temperature above 100.4? F, increased abdominal pain, increased vaginal bleeding or any new problems. Stand Alone Forms: General Discharge Information Follow-up/Referrals: Steven Garnett MD [Physician] - 6 Weeks Discharge Medications: Continued cetirizine [Zyrtec] 10 mg tablet 10 mg PO DAILY PRN (Reason: sinus pressure) lansoprazole 15 mg capsule,delayed release(DR/EC) 15 mg PO DAILY ferrous sulfate 325 mg (65 mg iron) Tablet 325 mg PO DAILY #2 Tablet 1 tablet PO DAILY Date of admission: 05/18/23 06:08 Primary Care Provider: Michael Rios Admitting Provider: Steven Garnett Attending physician on admission: Steven Garnett Condition: Stable
[2023-05-18] MEDS: OXYTOCIN 30 UNITS/NS 500 ML 30 UNITS/500 ML BAG 125 UNITS IV CONT (15:46)
[2023-05-18] MEDS: IBUPROFEN 600 MG TABLET PO ×2 (17:13→23:30)
[2023-05-18] MEDS: WITCH HAZEL 40 PADS 1 PAD TOPICAL (17:13)
[2023-05-18] MEDS: BENZOCAINE 20% AER SPR (*SP) 56 GM CAN 1 SPRAY TOPICAL (17:13)
--- NOTE | 2023-05-18 17:14 | PC.NURSE ---
1700 Introductions were made, then consulted with patient to assess needs related to . Discussed with mother her?plans to feed?her infant, the?experience so far, and mother states this baby latched well without pain. Encouraged understanding of the benefits of skin to skin (demonstrating unwrapping infant and placing upright on her chest), stimulating with massage touch, changing positions to encourage wakefulness, how to watch for early feeding cues, responsive feeding, and feeding on demand. Mother voiced understanding of information and will call if there is a request for assistance. Reported to the Primary RN.
[2023-05-18] MEDS: ACETAMINOPHEN 325 MG TABLET 650 MG PO (19:35)
[2023-05-19] MEDS: ACETAMINOPHEN 325 MG TABLET 650 MG PO ×2 (04:10→10:11)
[2023-05-19 04:15] VITALS: BP 90/62; PULSE 86; RESP 16; TEMP 36.6; O2SAT 99
[2023-05-19 05:11] LABS: Hematocrit 27.2 % (37.0-47.0); Hemoglobin 9.2 g/dL (12.0-15.0)
--- NOTE | 2023-05-19 07:57 | WPDANLDPN2 ---
Anes-Prog Note L&D Date/Time: 05/19/23 07:57 Comfortable throughout: labor and delivery Neuraxial method: epidural Epidural/Spinal procedure site: clean & non-tender Neuro status: Neuro function grossly intact. Cardiovascular status: normal Respiratory status: normal Airway patency: baseline Mental status: baseline Post-Op hydration status: normal Vital Signs: Last Vital Signs Temp 36.6 C 05/19/23 04:15 Pulse 86 05/19/23 04:15 Resp 16 05/19/23 04:15 BP 90/62 L 05/19/23 04:15 Pulse Ox 99 05/19/23 04:15 O2 Del Method Room Air 05/18/23 20:15 Pain score (VAS): 2/10 I/O: Intake & Output 05/18/23 05/18/23 05/19/23 15:59 23:59 07:59 Intake Total 2500 Output Total 400 25 Balance 2100 -25 Post-procedural complaints: none Patient feedback: Patient satisfied with anesthetic care.
[2023-05-19 08:45] VITALS: BP 96/68; PULSE 82; RESP 18; TEMP 36.9; O2SAT 100
--- NOTE | 2023-05-19 09:16 | PM.OBPNVD ---
OB - PN: Subj Subjective Date/time seen: 05/19/23 09:16 Narrative: Pain OK. Would like to go home. OB - PN: Obj Data Labs 05/19/23 04:12 Labs: Laboratory Results - last 24 hr 05/18/23 05/19/23 06:52 04:12 Hgb 9.2 L D Hct 27.2 L RPR Non-reactive OB - PN A/P Plan Comments: A: PPD#1, doing well. P: Home to f/u 6 weeks. Exam Psych: Other: AVSS ABD soft, nontender, fundus firm EXT nontender
[2023-05-19] MEDS: DOCUSATE SODIUM 100 MG CAPSULE PO (10:12)
[2023-05-19] MEDS: LANOLIN (LANSINOH) 7.5 GM CREAM 1 APPLIC TOPICAL (10:12)
[2023-05-19] MEDS: MULTIVIT/MIN/PREN/FOL AC/IRON TABLET 1 TAB PO (10:12)
[2023-05-19] MEDS: POLYSACCHARIDE IRON COMPLEX 150 MG CAPSULE PO (10:12)
[2023-05-19] MEDS: IBUPROFEN 600 MG TABLET PO (10:12)
--- NOTE | 2023-05-19 12:01 | PC.NURSE ---
[id number] Consulted with patient to assess needs related to . Discussed with mother her successes, concerns and any questions she has. There are visible linear bruises on the areolas bilaterally from previous latches. We reviewed working with the infant, supporting breast, protecting her nipples with an optimal deep latch, good positioning, and good hand washing. Encouraged understanding the benefits of skin to skin, responding to feeding cues, frequencies of feeding 8-12 times in 24 hours (approximately 2-3 hours), duration of feedings, milk production, intake/output feeding sheet and signs of adequate intake encouraging swallowing at the breast. Reviewed positioning and alignment, supporting breast, off-centered (asymmetrical latch) and leading with the chin with big, open, wide gape. Infant latched optimally to the left ,then right breast in cross cradle position. Education given to the mother of how to visualize the suckling (with good rocking jaw motion) swallows (dropping of the lower jaw) and how to listen for drinking at the breast (the ka sound) which infant demonstrated. The infant was able to maintain latch without discomfort to mother. Nipple care reviewed with optimal latch, good positioning and using clean hands when touching her breast. Resources used to facilitate learning were used from the visual handouts/ tool/feeding sheet/mom and baby guide. Mother voiced understanding of the education shared, to call for assistance if the does not latch or if there is discomfort with . Reported to the Primary RN.
[2023-05-20 13:57] VITALS: BP 100/71; PULSE 87; RESP 18; TEMP 36.8; O2SAT 100
--- OUTSIDE RECORDS SUMMARY | 2023-06-29 14:04 | XMS_ITS | Patient Health Record ---
Author Name Unknown Organization [place] [facility], [facility] Address [address] [facility] [address] [place] [id number] Care Team Providers Care Desktop Manager Name Role Phone Gabriel POTTER, Michael Primary Care Provider Unavailab le REASON FOR REFERRAL No Information MEDICATIONS Medication SIG (Take, Route, Fr equency, Duration) Notes Start Date End Date Status Neomycin Sulfate 500 MG 1 tablet Orally bid for 10 days 03/27/2018 Active Sprintec 28 Active IMMUNIZATIONS Vaccine Route Administration Date Status Comme nts Influenza Vaccination Unknown 03/17/2018 Refused SOCIAL HISTORY Tobacco Use: Social History Observation Description Date Details (start date - stop date) Never Smoker NA - NA Sex Assigned At : Social History Observation Description Sex Assigned At Unknown Tobacco Use/Smoking Question Answer Notes Are you a nonsmoker PROBLEMS Problem Type ICD Code Onset Dates Problem Status W/U Status Risk SNOMED Code Notes Problem Diarrhea (R19.7) Active confirmed 81233286 Problem Bloating (R14.0) Active confirmed 418553835 Problem Abdominal cramping (R10.9) Active confirmed
== END 2023-05-19 17:10 | disposition home or self-care (01) | DRG 807 ==
LOC: ANHLDR 15:34 → ANHOB2 17:57
PROVIDERS: Admitting Provider Obstetrics & Gynecology; PCP Internal Medicine; Visit Provider Obstetrics & Gynecology
DX: O70.1 Second degree perineal laceration during delivery (principal); Z37.0 Single live birth; Z3A.39 39 weeks gestation of pregnancy
CPT/HCPCS: 36415; 85014; 85018; 85025; 86592; 86850; 86900; 86901; A9270; J2590; J2795; J7120

== ENCOUNTER 2024-10-09 09:19 | Outpatient (CLI) | payer OTHER, SELFPAY ==
--- NOTE | ~2024-10-09 | MMUS_ITS ---
EXAMINATION: MM diagnostic zaki BI w clyde, US breast LT limited HISTORY: Left axillary mass TECHNIQUE: 3-D tomosynthesis images of the breasts were performed and synthetic 2-D images were generated. CAD analysis was submitted and interpreted. High resolution limited left breast ultrasound was performed. COMPARISON: None BREAST PARENCHYMAL COMPOSITION:Dense: The breasts are extremely dense, which lowers the sensitivity of mammography. FINDINGS: MAMMOGRAPHIC FINDINGS: There is a 2.2 x 1.5 cm ovoid mass at the upper, outer left breast near the axilla. No mass lesion or distortion seen in the right breast. No suspicious microcalcifications. ULTRASOUND: There is a 1.3 x 0.6 x 1.3 cm ovoid somewhat heterogeneous mass at the left axillary region which correlates with area of palpable concern and the mammographic finding. Suggestion of feeding vessel. This could reflect a lymph node, but lacks a typical fatty hilum. IMPRESSION: 1.33 ovoid mass in the left axilla, as detailed above, indeterminate. This could reflect an enlarged, abnormal-appearing lymph node versus other mass. Ultrasound-guided biopsy recommended to establish a histologic diagnosis. BI-RADS category 4, suspicious findings. Reviewed, dictated and finalized at location . IMPRESSION: 1.33 ovoid mass in the left axilla, as detailed above, indeterminate. This cou ld reflect an enlarged, abnormal-appearing lymph node versus other mass. Ultras ound-guided biopsy recommended to establish a histologic diagnosis. BI-RADS category 4, suspicious findings.
== END 2024-10-09 09:20 | disposition home or self-care (01) ==
LOC: MICIMG 09:19
PROVIDERS: PCP Internal Medicine; Visit Provider Obstetrics & Gynecology
DX: N63.32 Unspecified lump in axillary tail of the left breast (principal)
CPT/HCPCS: 76642; 77062; 77066; G0279

== ENCOUNTER 2024-11-02 08:29 | Outpatient (CLI) | payer OTHER, SELFPAY ==
--- NOTE | ~2024-11-02 | MM_ITS ---
PROCEDURE: US breast biopsy LT w image CLINICAL HISTORY: 33-year-old female with left axillary mass that correlates to a palpable lump presents for ultrasound-guided core needle biopsy procedure. COMPARISON: 10/09/2024 Following informed consent including risks, benefits, and possible complications, the patient was brought to the ultrasound suite. A time-out procedure was performed. A preliminary ultrasound of the left breast was performed, redemonstrating an heterogeneous hypoechoic mass in the axillary tail/left axilla. The patient was prepped and draped in the usual sterile fashion. 1% lidocaine was instilled into the subcutaneous tissues. 1% lidocaine without epinephrine was injected into the deep tissues just inferior to the lesion. Approximately 15cc lidocaine was administered. A small skin nas was made. Multiple core samples were obtained with a 14-gauge multi pass biopsy needle. A post biopsy metal marker was placed at the biopsy site. Postprocedural mammogram of the left breast in craniocaudal and mediolateral projections reveal the post biopsy butterfly HydroMark marker in good position. The patient tolerated the procedure well and was without immediate postprocedural complications. IMPRESSION: Successful ultrasound guided biopsy of left axillary mass. A post biopsy metal marker was placed at the biopsy site, which is seen on postprocedural mammogram. The patient tolerated the procedure well without immediate postprocedure complications. The patient was given postprocedural instructions and sent home in stable condition. Reviewed, dictated and finalized at location B. IMPRESSION: Successful ultrasound guided biopsy of left axillary mass. A post b iopsy metal marker was placed at the biopsy site, which is seen on postprocedur al mammogram. The patient tolerated the procedure well without immediate postprocedure compli cations. The patient was given postprocedural instructions and sent home in sta ble condition.
--- OUTSIDE RECORDS SUMMARY | 2024-11-02 08:39 | XMS_ITS | Patient Health Record ---
Author Organization [facility] Address [address] [facility] [address] [place] [address] Care Team Providers Care Broomcorn Seeder Name Role Phone Gabriel POTTER, Michael Primary Care Provider Unavailab le Reason For Referral No Information Medications Medication SIG (Take, Route, Fr equency, Duration) Notes Start Date End Date Status Neomycin Sulfate 500 MG 1 tablet Orally bid for 10 days 03/27/2018 Active Sprintec 28 Active Immunizations Vaccine Route Administration Date Status Comme nts Influenza Vaccination Unknown 03/17/2018 Refused Social History Tobacco Use: Social History Observation Description Date Details (start date - stop date) Never Smoker NA - NA Tobacco Use/Smoking Question Answer Notes Are you a nonsmoker Problems Problem Type SNOMED Code ICD Code Onset Dates Problem Status W/U Status Risk Notes Problem 71036975 Diarrhea (R19.7) Active confirmed Problem 120968430 Bloating (R14.0) Active confirmed Problem 009344944 Abdominal cramping (R10.9) Active confirmed Problem 746006123 Irregular bowel habits (R19.8) Active confirmed She has had irregular bowel habits, abdominal cramping, and diarrhea for the last 10 years. When these episodes occur it comes on immediately after eating. She has not been able to identify any specific food triggers. She tried Onyvax colon health probiotic and fiber gummies, but it made her constipated. She has had an ultrasound and upper GI series, which by her report was unremarkable. She was also given a prescription for Levsin, which she only took one time, but it made her feel worse. Suspect symptoms may be functional in nature or related to food intolerance. Plan Of Treatment Pending Test Test Name Order Date Celiac Disease Comprehensive 03/17/2018 Initiate SIBO 03/17/2018 Insurance Providers Payer Name Payer Address Payer Phone Subscriber Number Group Number Insured Name Patient Relationship to Insured Coverage Start Date Coverage End Date [facility] Choice/ choice Plus [id number] [address] [place] [phone] [id number] Lois Rodriguez Self - patient is the insured Medical (General) History Medical History History ICD Code Pseudocholinesterase deficiency Surgical History Surgery Date(Month/Year) [place] [facility]
--- NOTE | 2024-11-02 10:09 | S_PTH ---
PATIENT: Lois Alba LOC: [facility] U#:[id number] AGE/SX: 33/F ROOM: RE11/02/[address]: Livier Viveros MD : 1990 BED: DIS: 11/02/2024 SPEC #: [id number] RECD: 11/02/24 11:42 STATUS: TJ REAngelique #: [id number] TITI: 11/02/24 10:[address]: Livier Viveros DEPT: [facility] Surgical RECD BY: Breanne Black ENTERED: 11/02/24 11:43 SP TYPE: Surgical OTHR DR: Michael Rios MD Tissues: A - Lymph Node Biopsy Procedures: Unstained Slides Hematoxylin and Eosin Stain Gross and Microscopic Level 4
== END 2024-11-02 08:30 | disposition home or self-care (01) ==
PROVIDERS: PCP Internal Medicine; Visit Provider Surgery
DX: N63.32 Unspecified lump in axillary tail of the left breast (principal); N63.21 Unspecified lump in the left breast, upper outer quadrant
CPT/HCPCS: 19083; 77065; 88305; A4648

== ENCOUNTER 2024-11-27 08:45 | Outpatient (CLI) | payer OTHER, SELFPAY ==
--- NOTE | ~2024-11-27 | MMUS_ITS ---
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 Patient presents for ultrasound guided Magseed localization of the clip within the lesion in the axillary tail left breast. After informed consent was obtained, the patient was brought into the ultrasound room. A time-out procedure was performed. Preliminary images of the left breast were obtained to localize the target. A needle was then placed into the breast and ultrasound images were obtained to confirm position of the needle. The Magseed clip deployed immediately adjacent to the biopsy clip. Postprocedure mammogram of the left breast showed the Magseed in good position. IMPRESSION: Successful ultrasound-guided Magseed localization of left breast lesion. The patient tolerated the procedure well with no immediate post procedure complications. Reviewed, dictated and finalized at location B. IMPRESSION: Successful ultrasound-guided Magseed localization of left breast le ayanna. The patient tolerated the procedure well with no immediate post procedur e complications.
--- OUTSIDE RECORDS SUMMARY | 2024-11-27 08:58 | XMS_ITS | Patient Health Record ---
Author Organization [facility] Address [address] [facility] [address] [place] [address] Care Team Providers Care Air Bag Buffer Name Role Phone Gabriel POTTER, Michael Primary [...] Problem Status W/U Status Risk Notes Problem 60293642 Diarrhea (R19.7) Active confirmed Problem 855102615 Bloating (R14.0) Active confirmed Problem 187003771 Abdominal cramping (R10.9) Active confirmed Problem 950884929 Irregular bowel habits (R19.8) Active confirmed She has had irregular bowel habits, abdominal cramping, and diarrhea for the last 10 years. When these episodes occur it comes on immediately after eating. She has not been able to identify any specific food triggers. She tried LeanWagon colon health probiotic and fiber gummies, but [...] Insured Coverage Start Date Coverage End Date [facility] Choice/ choice Plus E2 [address] [place] [phone] [id number] Lois Rodriguez Self - patient is the insured Medical (General) History Medical History History ICD Code Pseudocholinesterase deficiency Surgical History Surgery Date(Month/Year) [place] [facility]
== END 2024-11-27 08:46 | disposition home or self-care (01) ==
PROVIDERS: PCP Internal Medicine; Visit Provider Surgery
DX: N63.21 Unspecified lump in the left breast, upper outer quadrant (principal); N63.32 Unspecified lump in axillary tail of the left breast
CPT/HCPCS: 19285; 77065; A4648

== ENCOUNTER 2024-12-19 01:58 | Day surgery (SDC) | payer OTHER, SELFPAY ==
[2024-12-05 14:48] VITALS: BMI 21.0
--- NOTE | 2024-12-05 14:55 | PC.NURSE ---
[facility] has started construction of its new state of the art ER which will open Spring 2026. With this, we anticipate parking may be a challenge for some our surgical patients and families. Parking spaces are limited but are available for all Surgical, obstetrics, and ER patients sharing this lot. If you arrive and find you are having a hard time finding a parking space, please note that we understand the challenges, please drive around the hospital and park near Hospital Entrance 1. When you enter this entrance, you can ask a volunteer to direct or take you back to the surgical waiting area to check in. We appreciate everyone?s understanding of these expected challenges while we build for your future. Report to the Outpatient Waiting Room, entrance under the green pavilion located off [address], at time _0700_ on date _[phone]_. Planned Procedure Time: _0900_.? Time changes happen often and if your time is changed the preop area will call you the afternoon before. - You and your visitor will be asked to self-screen and do not enter if you have any COVID symptoms. Please call surgeon if you need to reschedule. - A mask is optional within the hospital at this time. Patients may have clear liquids (water, carbonated beverages, clear teas, apple juice) until 3 hours prior to surgery with a maximum of 20 ounces. - No food from midnight until time of surgery and no smoking, or chewing tobacco (or any form of nicotine). No chewing gum, candy or mints. Take only the following medications with a SIP of water on the morning of surgery: ___None DO NOT STOP ANY OF YOUR OTHER PRESCRIPTION MEDICATIONS PRIOR TO SURGERY EXCEPT THE FOLLOWING Hold all vitamins and supplements for 3 days per anesthesiologist. Medications to discontinue per physician Date to take last dose Please no make-up, nail bermudian, hairspray, perfume, deodorant, or body powder the day of surgery.? No jewelry (including any body piercings) or valuables the day of surgery, leave them at home.? Please take a shower or bath the night before, or the morning of, surgery with an antibacterial soap.? Wear comfortable, loose fitting clothing.? - Jewelry must be removed prior to entering the operating room.? Rings and piercings that are not removed may be cut off. - The hospital will not accept responsibility for valuables.? - Please leave all valuables, including medications, at home the day of surgery. If you are going home after surgery, a licensed full service vending driver must drive you home.? - NO public transportation without another adult if you receive anesthesia. - We recommend that an adult stay with you for 24 hours following discharge. - We also recommend that you do not drive, make important decision, drink alcoholic beverages, or take any drugs that were not prescribed by your health care provider for at least 24 hours after your discharge time. Follow any additional instructions given to you from your surgeon. Telephone instructions given to __Erin___and asked if any additional questions and then verbalized understanding. Patient advised to call surgeon office or pre surgery nurse liaison [phone] if any additional questions.
--- NOTE | ~2024-12-19 | MM_ITS ---
[email or web address] 01/16/2025 08:13 Indication: Left breast lumpectomy. Ductal adenoma. Procedure: Postsurgical biopsy specimen Comparison: Mammogram dated 11/27/2024 Findings: Biopsy specimen contains tissue marker and magseed device. Please refer to procedural report for details. Impression: 1: Mammography specimen contains magseed device and tissue marker of interest. Reviewed, dictated and finalized at location O. ILIZATION TECH Impression: 1: Mammography specimen contains magseed device and tissue marker of interest.
[2024-12-19 07:20] VITALS: BP 122/79; PULSE 92; RESP 16; TEMP 36.9; O2SAT 100
[2024-12-19] MEDS: ACETAMINOPHEN 500 MG TABLET 1000 MG PO (07:25)
[2024-12-19] MEDS: LACTATED RINGERS 1,000 ML 30 ML IV CONT (07:30)
--- NOTE | 2024-12-19 08:14 | WPDANESEPPF ---
Anes - Initial Pre Proc Eval Procedure: Operation Date: 12/19/24 10:30 Proposed Procedures p Left Breast Lumpectomy with Mag Seed Localization - Livier Viveros MD Date/Time: 12/19/24 08:14 Surgeon: Livier Viveros MD Pre Op Diagnosis: unspec lump axillary tail left Breast Patient Data Age: 34 Gender: F Height: 1.57 m Weight: 53.65 kg Last Vital Signs Temp 36.9 C 12/19/24 07:20 Pulse 92 12/19/24 07:20 Resp 16 12/19/24 07:20 BP 122/79 12/19/24 07:20 Pulse Ox 100 12/19/24 07:20 O2 Del Method Room Air 12/19/24 07:20 Allergies Allergy/AdvReac Type Severity Reaction Status Date / Time No Known Allergies Allergy Verified 12/19/24 07:40 Home Medications ?Medication ?Instructions ?Recorded ?Confirmed ?Type cetirizine 10 mg tablet (Zyrtec) 10 mg PO DAILY PRN sinus pressure 07/01/21 12/05/24 History lansoprazole 15 mg capsule,delayed 15 mg PO DAILY 07/01/21 12/19/24 History release Patient hx anesthesia problems: none Family hx anesthesia problems: none Results Review: All pre-operative results and documents have been reviewed as part of the pre-operative evaluation. [facility] Past Medical History Medical History BMI 21.0-21.9, adult Encounter for preventive health examination Periumbilical pain Pseudocholinesterase deficiency Incomplete RBBB Frequent headaches Encounter to establish care On terminal system operator drug therapy GERD (gastroesophageal reflux disease) BMI 20.0-20.9, adult No pertinent past medical history Finger fracture Surgical History Surgical History No pertinent past surgical history Family History Family History Father Hypertension Malignant neoplasm of prostate Grandparent Family history of arthritis Family history of Alzheimer's disease Mother SVT (supraventricular tachycardia) Social History Social History Smoking status: Never smoker Second hand tobacco smoke exposure: No Alcohol intake: current Substance use: never Substance use type: does not use Do You Feel Safe in your Home?: Yes Lack of Transportation: No Lack of Food: Never True Current Housing: I Have Housing Concerned About Future Housing: No Difficulty Paying Gas/Electric Bills: No Difficulty Paying for Meds: No Currently Unemployed: No Education: Bachelor's Degree Difficulty w/ Childcare or Family Care: No Living arrangements: with family Occupation/Education: occupation Gender identity (if verbalized by the patient): Female Spiritual care concerns: No Anes - Eval Final PreProcedure Day of Procedure 12/19/24 08:14 Patient weight: normal Heart: regular rate and rhythm Lungs: clear to auscultation Airway: Mallampati scale class II Neurological: alert and oriented Last oral intake: >/= 8 hours ASA classification: II Emergent: no Anesthetic plan: proceed Anesthesia type and monitoring: general GIVS and standard monitoring Results Review: All pre-operative results and documents have been reviewed as part of the pre-operative evaluation. Informed Consent: The patient's anesthetic plan and its attendant risks and benefits were discussed with the patient/family/POA. Questions were solicited and answers provided to the satisfaction of the patient/family/POA.
[2024-12-19 08:27] LABS: BEDSIDEPREGUCG Negative (Negative)
--- NOTE | 2024-12-19 08:42 | WPDHPUPDATE1 ---
History and Physical Update Update Date/Time: 12/19/24 08:42 - Left breast lumpectomy with Mag seed localization. History and Physical has been reviewed, including an updated exam of the patient. There are NO changes in the patient's condition. Risks, benefits, and alternatives have been discussed and questions answered. Patient agrees to proceed with procedure.
[2024-12-19] MEDS: ceFAZolin 2 GM in SODIUM CHLORIDE 0.9% IV 50 ML 100 ML IVPB (09:08)
[2024-12-19] MEDS: BUPIVACAINE/EPINEPHRINE 0.5% 30 ML VIAL 10 ML INFILTRATE (09:08)
--- NOTE | 2024-12-19 09:35 | S_PTH ---
PATIENT: Lois Alba LOC: [facility] U#:[id number] AGE/SX: 34/F ROOM: RE12/19/[address]: Livier Viveros MD : 1990 BED: DIS: 12/19/2024 SPEC #: [id number] RECD: 12/19/24 09:47 STATUS: TJ REAngelique #: [id number] TITI: 12/19/24 09:[address]: Livier Viveros DEPT: [facility] Surgical RECD BY: Breanne Black ENTERED: 12/19/24 09:48 SP TYPE: Surgical OTHR DR: Michael Rios MD Tissues: A - Breast Lumpectomy Procedures: Hematoxylin and Eosin Stain Gross and Microscopic Level 5
--- NOTE | 2024-12-19 09:56 | W.PM.PROC2 ---
Procedure Note - Detailed Date of Procedure 12/19/24 Pre-op Diagnosis unspec lump axillary tail left Breast Post-op Diagnosis Same Procedure Performed Left breast lumpectomy with magseed localization Surgeon Livier Viveros MD Anesthesia MAC Description of Procedure Patient was identified in the pre-operative area and brought to the OR suite. She underwent tumor localization previously by IR with magseed placement. She was laid supine in the operating table and sequential compression devices were applied. General anesthesia was induced without difficulties. The left chest was prepped and draped in a sterile fashion. The sentimag probe was used to identify the area where the magseed was placed and a small axillary incision was made. Dissection was carried down through the subcutaneous tissue into the breast tissue. The mass was identified with palpation and using sentimag probe, and a small rim of normal breast tissue was excised along with the tumor as our lumpectomy specimen. Once the specimen was completely excised, it was oriented using surgical paint according to ticket maker instructions. The specimen was placed in the faxitron and a was obtained and sent to Radiology for radiographic confirmation of mass, biopsy marker and magseed within the specimen. Once the radiographic confirmation was received, the wound was irrigated with saline and hemostasis was assured. The deep dermal layer was approximated using interrupted 3-0 vicryl followed by 4-0 monocryl for the skin. Dermabond was applied followed by a surgical bra. Patient was awoken from anesthesia and taken to the recovery area in stable condition. All needles, instruments and sponge counts were correct as reported by the operating room staff. Patient tolerated the procedure well with no immediate complications. Estimated Blood Loss 2 Pathology Yes Complications No immediate complications Condition Stable Disposition PACU [facility] Billing Surgery - Charge Forward: Surgery Billing (CPT 55994)
[2024-12-19 10:00] VITALS: BP 102/57; PULSE 87; RESP 16; O2SAT 100
[2024-12-19 10:30] VITALS: BP 104/66; PULSE 65; RESP 16
[2024-12-19 10:56] VITALS: BP 107/61; PULSE 58; RESP 16
== END 2024-12-19 11:07 | disposition home or self-care (01) ==
PROVIDERS: PCP Internal Medicine; Visit Provider Surgery
PROC: (CPT 19301; principal; 2024-12-19 10:30)
DX: D24.2 Benign neoplasm of left breast (principal); K21.9 Gastro-esophageal reflux disease without esophagitis; E88.09 Other disorders of plasma-protein metabolism, not elsewhere classified; I45.10 Unspecified right bundle-branch block; Z79.899 Other long term (current) drug therapy; Z80.42 Family history of malignant neoplasm of prostate; Z82.49 Family history of ischemic heart disease and other diseases of the circulatory system
CPT/HCPCS: 19301; 76098; 88307; J0690; A9270; J2003; J2250; J2405; J2704; J3010; J7120; L8000